=== PATIENT | female | born 1995 | race Caucasian/White ===

== ENCOUNTER 2018-05-17 14:50 | Emergency (ER) | payer BC ==
--- NOTE | 2018-05-17 17:10 | RAD REPORT ---
EXAM DESCRIPTION: RAD - Knee Left 3 View - 05/17/2018 4:58 pm CLINICAL HISTORY: Knee pain following trauma COMPARISON: None. FINDINGS: No fracture, dislocation or periosteal reaction.No joint effusion seen. No joint space arias rowing. No soft tissue abnormality. IMPRESSION: Negative left knee. Clinical concerns for internal derangement or occult bony injury could be further assessed with MR im aging.
--- NOTE | 2018-05-17 17:37 | ER ---
Nurse's Notes [facility] Name: Jennifer Cummings Age: 22 yrs Sex: Female : 1995 Arrival Date: 05/17/2018 Time: 14:53 Bed 23 Private MD: None, None Diagnosis: Abrasion of knee;Internal derangement of knee Presentation: 05/17 15:20 Presenting complaint: Patient states: I hurt my left knee, ambulatory last night, pt la1 reports partial weight bearing today, CMS intact. Transition of care: patient was not received from another setting of care. Onset of symptoms was May 17, 2018. Risk Assessment: Do you want to hurt yourself or someone else? Patient reports no desire to harm self or others. Initial Sepsis Screen: Does the patient meet any 2 criteria? No. Patient's initial sepsis screen is negative. Does the patient have a suspected source of infection? No. Patient's initial sepsis screen is negative. Care prior to arrival: None. 15:20 Method Of Arrival: Wheelchair la1 15:20 Acuity: TERI 4 la1 PSYCHOLOGICAL OPERATIONS: 15:21 LMP N/A - Irregular menses la1 Historical: - Allergies: 15:21 Latex, Natural Rubber; la1 - PMHx: 15:21 ADD/ADHD; Asthma; la1 - PSHx: 15:21 None; la1 - Immunization history:: Adult Immunizations up to date. - Social history:: Smoking status: Patient/guardian denies using tobacco. - Ebola Screening: : No symptoms or risks identified at this time. Screenin:56 Abuse screen: Denies threats or abuse. Nutritional screening: No deficits noted. tl3 Tuberculosis screening: No symptoms or risk factors identified. Fall Risk None identified. Assessment: 16:56 General: Appears uncomfortable, well groomed, well developed, well nourished, Behavior tl3 is calm, cooperative, appropriate for age. Pain: Complains of pain in left knee. Neuro: Level of Consciousness is awake, alert, obeys commands, Oriented to person, place, time, situation, Appropriate for age. Cardiovascular: Patient's skin is warm and dry. Respiratory: Airway is patent Respiratory effort is even, unlabored, Respiratory pattern is regular, symmetrical. GI: No signs and/or symptoms were reported involving the gastrointestinal system. : No signs and/or symptoms were reported regarding the genitourinary system. EENT: No signs and/or symptoms were reported regarding the EENT system. Derm: No signs and/or symptoms reported regarding the dermatologic system. Musculoskeletal: Reports pain in left knee since this morning at 1am, skin on knee abraded. Pain is 2 out of 10 on a pain scale. 18:12 Reassessment: No changes from previously documented assessment. Patient and/or family tl3 updated on plan of care and expected duration. Pain level reassessed. Patient is alert, oriented x 3, equal unlabored respirations, skin warm/dry/pink. Donnell at bedside discussing POC. 19:41 Reassessment: No changes from previously documented assessment. Patient and/or family tl3 updated on plan of care and expected duration. Pain level reassessed. Patient is alert, oriented x 3, equal unlabored respirations, skin warm/dry/pink. Donnell at bedside discussing POC. 19:58 Reassessment: Patient and/or family updated on plan of care and expected duration. Pain tl3 level reassessed. pt is very anxious, crying in pain. 20:10 Reassessment: Donnell at bedside discussing POC. tl3 20:52 Reassessment: No changes from previously documented assessment. Patient and/or family tl3 updated on plan of care and expected duration. Pain level reassessed. Patient is alert, oriented x 3, equal unlabored respirations, skin warm/dry/pink. Vital Signs: 15:22 BP 121 / 76; Pulse 98; Resp 18; Temp 97.2; Pulse Ox 98% on R/A; Weight 99.79 kg; Height la1 5 ft. 2 in. (157.48 cm); 18:12 BP 122 / 74; Pulse 91; Resp 18; Pulse Ox 99% on R/A; tl3 19:58 BP 140 / 94; Pulse 103; Resp 24; Pulse Ox 100% on R/A; tl3 20:52 BP 125 / 77; Pulse 101; Resp 18; Pulse Ox 98% on R/A; tl3 15:22 Body Mass Index 40.24 (99.79 kg, 157.48 cm) la1 ED Course: 14:53 Patient arrived in ED. mr 14:53 None, None is Private Physician. mr 15:20 Triage completed. la1 15:22 Arm band placed on right wrist. la1 16:25 Donnell Francisco PA is PHCP. jm 16:25 Sohail Nugent MD is Attending Physician. jm 16:53 Dhara Dinh, JASON is Primary Nurse. tl3 16:55 X-ray completed. Portable x-ray completed in exam room. Patient tolerated procedure la2 well. 16:56 Knee Left 3 View XRAY In Process Unspecified. EDMS 16:56 Patient has correct armband on for positive identification. Bed in low position. Adult tl3 w/ patient. 16:56 No provider procedures requiring assistance completed. Patient did not have IV access tl3 during this emergency room visit. 17:34 Harvinder Leonard MD is Referral Physician. [facility] 18:12 Crutch training done. Knee immobilizer applied on left knee. tl3 19:07 CT completed. Patient moved to CT via stretcher. Patient moved back from CT. cw1 19:08 Knee Left Wo Con In Process Unspecified. EDMS 19:48 Urine --Ancillary (enter results) Sent. tl3 19:48 Urine Dipstick--Ancillary (enter results) Sent. tl3 20:42 Harvinder Leonard MD is Referral Physician. jmm Administered Medications: 17:55 Drug: morphine 4 mg Route: IM; Site: right vastus lateralis; tl3 19:42 Follow up: Response: Pain is decreased tl3 17:55 Drug: Zofran 4 mg Route: PO; tl3 19:42 Follow up: Response: No adverse reaction tl3 20:32 Drug: Dilaudid 0.5 mg Route: IM; Site: right deltoid; tl3 20:53 Follow up: Response: Medication administered at discharge. tl3 20:32 Drug: Ketorolac 30 mg Route: IM; Site: right deltoid; tl3 20:53 Follow up: Response: Medication administered at discharge. tl3 Outcome: 17:36 Discharge ordered by . jmm 20:43 Discharge ordered by . jmm 20:52 Discharged to home with crutches. tl3 20:52 Condition: stable 20:52 Discharge instructions given to patient, family, Instructed on discharge instructions, follow up and referral plans. medication usage, Demonstrated understanding of instructions, follow-up care, medications, Prescriptions given X 1. 21:20 Patient left the ED. tl3 Signatures: Dispatcher [employer] EDMS Donnell Francisco PA PA jmm Rivera, Maria mr Olmos, Marlene cw1 Jorge Estrada RN RN la1 Lea Beasley2 Dhara Dinh, JASON RN tl3
--- NOTE | 2018-05-17 17:37 | EDPHYS ---
Physician Documentation [facility] Name: Jennifer Cummings Age: 22 yrs Sex: Female : 1995 Arrival Date: 05/17/2018 Time: 14:53 Bed 23 Private MD: None, None ED Physician Sohail Nugent HPI: 05/17 16:56 This 22 yrs old Female presents to ER via Wheelchair with complaints of Fall jmm Injury, Knee Pain. 16:56 Details of fall: The patient fell from an upright position. Onset: The symptoms/episode jmm began/occurred acutely, at 0100. Associated injuries: The patient sustained left knee. The patient has not experienced similar symptoms in the past. This is a 22 year old female that presents to the ED with left knee pain. Patient states at approx 0100 this morning she slipped on cement falling directly on the knee. Patient states when she awoke today she developed worsening pain. Denies other known injury. . 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 - Social history:: Smoking status: Patient/guardian denies using tobacco. - Ebola Screening: : No symptoms or risks identified at this time. ROS: 16:56 Constitutional: Negative for fever, chills, and weight loss, Cardiovascular: Negative jmm for chest pain, palpitations, and edema, Respiratory: Negative for shortness of breath, cough, wheezing, and pleuritic chest pain. 16:56 MS/extremity: Positive for injury or acute deformity, abrasion, pain. 16:56 All other systems are negative. Exam: 16:56 Head/Face: atraumatic. Chest/axilla: Normal chest wall appearance and motion. jmm Cardiovascular: Regular rate and rhythm. No edema appreciated Respiratory: Normal respirations, no respiratory distress appreciated Abdomen/GI: Non distended, soft 16:56 Constitutional: The patient appears alert, awake, uncomfortable. 16:56 Musculoskeletal/extremity: abrasion noted to the left anterior knee, the region is tender to palpation, no lateral or posterior pain is elicited on palpation or rom, full dorsalis pulse appreciated, compartments are soft, NVI. 16:56 Skin: abrasion noted to the left anterior knee. 16:56 Neuro: Orientation: is normal, Mentation: is normal, Memory: is normal. 16:56 Psych: Behavior/mood is pleasant, cooperative, anxious. Vital Signs: 15:22 BP 121 / 76; Pulse 98; Resp 18; Temp 97.2; Pulse Ox 98% on R/A; Weight 99.79 kg; Height la1 5 ft. 2 in. (157.48 cm); 18:12 BP 122 / 74; Pulse 91; Resp 18; Pulse Ox 99% on R/A; tl3 19:58 BP 140 / 94; Pulse 103; Resp 24; Pulse Ox 100% on R/A; tl3 20:52 BP 125 / 77; Pulse 101; Resp 18; Pulse Ox 98% on R/A; tl3 15:22 Body Mass Index 40.24 (99.79 kg, 157.48 cm) la1 Procedures: 21:14 Splinting: Splint applied to left leg using knee immobilizer, applied by nurse. jmm Examined by me, post splint application: neurovascular intact, 2+ distal pulses palpable, brisk capillary refill noted, Patient tolerated well. MDM: 16:56 Patient medically screened. jmm 17:34 Data reviewed: vital signs, nurses notes. Counseling: I had a detailed discussion with jmute the patient and/or guardian regarding: the historical points, exam findings, and any diagnostic results supporting the discharge/admit diagnosis, radiology results, the need for outpatient follow up, to return to the emergency department if symptoms worsen or persist or if there are any questions or concerns that arise at home. 20:41 Response to treatment: the patient's symptoms have mildly improved after treatment. ED jmm course: Dr. Bah evaluated the patient at bedside. 05/17 19:16 Order name: Urine Dipstick--Ancillary (enter results) ms 05/17 19:16 Order name: Urine --Ancillary (enter results) ms 05/17 15:22 Order name: Knee Left 3 View XRAY; Complete Time: 17:12 la1 05/17 18:06 Order name: Knee Left Wo Con; Complete Time: 19:51 EDMS 05/17 19:16 Order name: Urine Dipstick-Ancillary; Complete Time: 19:51 [facility] 05/17 19:16 Order name: Urine --Ancillary; Complete Time: 19:51 [facility] 05/17 17:12 Order name: Knee Immobilizer; Complete Time: 17:25 [facility] 05/17 17:12 Order name: Crutches; Complete Time: 17:25 [facility] 05/17 18:16 Order name: Urine Test (obtain specimen); Complete Time: 18:58 la1 Administered Medications: 17:55 Drug: morphine 4 mg Route: IM; Site: right vastus lateralis; tl3 19:42 Follow up: Response: Pain is decreased tl3 17:55 Drug: Zofran 4 mg Route: PO; tl3 19:42 Follow up: Response: No adverse reaction tl3 20:32 Drug: Dilaudid 0.5 mg Route: IM; Site: right deltoid; tl3 20:53 Follow up: Response: Medication administered at discharge. tl3 20:32 Drug: Ketorolac 30 mg Route: IM; Site: right deltoid; tl3 20:53 Follow up: Response: Medication administered at discharge. tl3 Disposition: 05/17/18 20:43 Discharged to Home. Impression: Abrasion of knee, Internal derangement of knee. - Condition is Stable. - Discharge Instructions: Knee Pain. - Prescriptions for Ibuprofen 800 mg Oral Tablet - take 1 tablet by ORAL route every 8 hours As needed take with food; 30 tablet. - Medication Reconciliation Form, Thank You Letter, Antibiotic Education, Prescription Opioid Use, Work release form form. - Follow up: Harvinder Leonard MD; When: 2 - 3 days; Reason: Recheck today's complaints, Continuance of care, Re-evaluation by your physician. Signatures: Dispatcher [employer] [facility] Donnell Francisco PA PA jmm Attema, Lee, RN RN la1 Dhara Dinh, JASON RN tl3 Corrections: (The following items were deleted from the chart) 17:58 17:36 05/17/2018 17:36 Discharged to Home. Impression: Internal derangement of knee; sahra Abrasion, left knee. Condition is Stable. Forms are Medication Reconciliation Form, Thank You Letter, Antibiotic Education, Prescription Opioid Use. Follow up: Harvinder Leonard; When: As needed; Reason: Recheck today's complaints, Continuance of care, Re-evaluation by your physician. sahra 21:20 20:43 05/17/2018 20:43 Discharged to Home. Impression: Abrasion of knee; Internal tl3 derangement of knee. Condition is Stable. Prescriptions for Ibuprofen 800 mg Oral Tablet - take 1 tablet by ORAL route every 8 hours As needed take with food; 30 tablet. and Forms are Medication Reconciliation Form, Thank You Letter, Antibiotic Education, Prescription Opioid Use. Follow up: Harvinder Leonard; When: 2 - 3 days; Reason: Recheck today's complaints, Continuance of care, Re-evaluation by your physician. sahra
[2018-05-17] MEDS ORDERED: ONDANSETRON 4 MG (ODT) TAB ONE (18:02)
[2018-05-17] MEDS ORDERED: MORPHINE 4 MG/ML SYR ONE (18:02)
[2018-05-17 19:21] LABS: Urine Blood NEGATIVE (NEG); Urine Glucose NEGATIVE (NEG); Urine Protein NEGATIVE (NEG); Urine Specific Gravity 1.025 (1.005-1.030); Urine pH 5.5 (5.0-7.0)
--- NOTE | 2018-05-17 19:49 | RAD REPORT ---
EXAM DESCRIPTION: CT - Knee Left Wo Con - 05/17/2018 7:08 pm CLINICAL HISTORY: Fall, pain, possible tibial plateau fracture. Pain out of proportion to plain film findings. COMPARISON: Left knee same date TECHNIQUE: Axial 2 millimeter thick images of the knee were obtained. Sagittal and coronal reformatt ed images were generated and reviewed. FINDINGS: Tibial plateau is intact. No femur, tibia, fibula for patella fracture. No patella tilt or displacement. No measurable joint effusion is identified. There is contusion or edema change anterio r to the tibia. Patella tendon appears to be intact. Quadriceps tendon unremarkable by CT criteria. CT is not adequate for assessment of meniscus or ligament injury. No air or foreign body in the soft tissues. IMPRESSION: No tibial plateau fracture or other acute bone finding. Contusion or edema changes anterior to the tibia. CT is not adequate for meniscus or ligament assessment. Internal derangement concerns would need MR barbara goldstein.
[2018-05-17] MEDS ORDERED: KETOROLAC 30 MG/ML INJ ONE (20:33)
[2018-05-17] MEDS ORDERED: HYDROMORPHONE HCL 1 MG/ML INJ ONE (20:33)
[2018-05-18] MEDS ORDERED: DIPHENHYDRAMINE 50 MG/ML VIAL ONE (23:01)
[2018-05-18] MEDS ORDERED: DEXAMETHASONE 10 MG/ML VIAL ONE (23:01)
[2018-05-18] MEDS ORDERED: FAMOTIDINE 20 MG/2 ML VIAL IV ONE (23:01)
[2018-05-18] MEDS ORDERED: NA CHLORIDE 0.9% 1,000 ML ONE (23:02)
[2018-05-18] MEDS ORDERED: EPINEPHRINE/PF 1 MG/ML AMP ONE (23:04)
== END 2018-05-17 21:20 | disposition home or self-care (01) ==
LOC: ER 14:50
DX: M23.92 Unspecified internal derangement of left knee (principal); S80.212A Abrasion, left knee, initial encounter; W01.0XXA Fall on same level from slipping, tripping and stumbling without subsequent striking against object, initial encounter; Y93.89 Activity, other specified; Y92.9 Unspecified place or not applicable
CPT/HCPCS: 73700; 81003; 81025; 96372; 99284; J0171; J1100; J1170; J7030

== ENCOUNTER 2018-06-13 22:10 | Inpatient (IN) | payer BC ==
[2018-06-13] MEDS ORDERED: LORazepam 2 MG/ML VIAL ONE (23:20)
[2018-06-13 23:45] LABS: Protime INR 1.18
[2018-06-13 23:46] LABS: Absolute Lymphocytes (CBC) 1.5 K/uL (0.7-4.9); Absolute Monocytes 0.6 K/uL (0.1-1.3); Absolute Neutrophil 9.7 K/uL (1.8-8.0); Basophils % 0.7 % (0-1.3); Eosinophils % 0.4 % (0-4.4); Hematocrit 41.9 % (36.0-45.0); Lymphocytes % 12.2 % (15.3-44.8); MCH 28.5 pg (27.0-35.0); MCV 81.5 fL (80-100); MPV 7.9 fL (7.6-11.3); Monocytes % 5.4 % (3.3-12.3); RBC Red Blood Cell Count 5.15 M/uL (3.86-4.86)
[2018-06-14] MEDS ORDERED: LORazepam 2 MG/ML VIAL ONE ×3 (00:01→01:17)
[2018-06-14 00:36] LABS: ALT/SGPT 22 U/L (12-78); AST/SGOT 19 U/L (15-37); Albumin 4.3 g/dL (3.4-5.0); Alkaline Phosphatase 101 U/L (45-117); BUN Blood Urea Nitrogen 10 mg/dL (7-18); Bicarbonate 22 mmol/L (21-32); Bilirubin Direct 0.1 mg/dL (0-0.2); Bilirubin Total 0.7 mg/dL (0.2-1.0); Glucose Level 102 mg/dL (74-106); Potassium 3.1 mmol/L (3.5-5.1); Protein, Total 8.6 g/dL (6.4-8.2); Sodium Level 137 mmol/L (136-145)
[2018-06-14] MEDS ORDERED: NA CHLORIDE 0.9% 1,000 ML ONE (01:17)
--- NOTE | 2018-06-14 01:53 | EDPHYS ---
Physician Documentation [facility] Name: Jennifer Cummings Age: 23 yrs Sex: Female : 1995 Arrival Date: 06/13/2018 Time: 22:25 Bed 6 Private MD: ED Physician Khurram Bah HPI: 06/14 02:27 This 23 yrs old Female presents to ER via EMS with complaints of Suspected gs Ingestion, Suicidal Ideation. 02:27 The patient presents to the emergency department with suicide ideation, and the patient gs has a plan, to overdose with medications. Onset: The symptoms/episode began/occurred acutely. Associated signs and symptoms: Pertinent negatives: abdominal pain. Severity of symptoms: At their worst the symptoms were severe in the emergency department the symptoms are unchanged. It is unknown whether or not the patient has had similar symptoms in the past. 02:27 overdose Adderall had 60 pills on 06/08 only 2 left. 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 - Social history:: Smoking status: Patient/guardian denies using tobacco, Patient uses alcohol, occasionally. Patient/guardian denies using street drugs. - Ebola Screening: : Patient negative for fever greater than or equal to 101.5 degrees Fahrenheit, and additional compatible Ebola Virus Disease symptoms Patient denies exposure to infectious person Patient denies travel to an Ebola-affected area in the 21 days before illness onset. ROS: 06/14 02:27 All other systems are negative. gs Exam: 02:27 Head/Face: Normocephalic, atraumatic. Eyes: Pupils equal round and reactive to light, gs extra-ocular motions intact. Lids and lashes normal. Conjunctiva and sclera are non-icteric and not injected. Cornea within normal limits. Periorbital areas with no swelling, redness, or edema. ENT: Nares patent. No nasal discharge, no septal abnormalities noted. Tympanic membranes are normal and external auditory canals are clear. Oropharynx with no redness, swelling, or masses, exudates, or evidence of obstruction, uvula midline. Mucous membranes moist. Neck: Trachea midline, no thyromegaly or masses palpated, and no cervical lymphadenopathy. Supple, full range of motion without nuchal rigidity, or vertebral point tenderness. No Meningismus. Chest/axilla: Normal chest wall appearance and motion. Nontender with no deformity. No lesions are appreciated. Respiratory: Lungs have equal breath sounds bilaterally, clear to auscultation and percussion. No rales, rhonchi or wheezes noted. No increased work of breathing, no retractions or nasal flaring. Abdomen/GI: Soft, non-tender, with normal bowel sounds. No distension or tympany. No guarding or rebound. No evidence of tenderness throughout. Back: No spinal tenderness. No costovertebral tenderness. Full range of motion. Skin: Warm, dry with normal turgor. Normal color with no rashes, no lesions, and no evidence of cellulitis. MS/ Extremity: Pulses equal, no cyanosis. Neurovascular intact. Full, normal range of motion. Neuro: Awake and alert, GCS 15, oriented to person, place, time, and situation. Cranial nerves II-XII grossly intact. Motor strength 5/5 in all extremities. Sensory grossly intact. Cerebellar exam normal. Normal gait. 02:27 Constitutional: The patient appears alert, awake. 02:27 Cardiovascular: Rate: tachycardic, Rhythm: regular, Pulses: no pulse deficits are appreciated. 02:27 Psych: Behavior/mood is uncooperative, Affect is flat, Oriented to person, place, time, Judgement / Insight is impaired. Delusions/hallucinations are not present. 02:37 ECG was reviewed by the Attending Physician. 03:53 Skin: injury, laceration(s), superficial forearm leacerations. Vital Signs: 06/13 22:15 BP 150 / 84; Pulse 145; Resp 18; Temp 98.7(O); Pulse Ox 100% on R/A; Weight 97.52 kg fc (R); Height 5 ft. 2 in. (157.48 cm) (R); Pain 0/10; 23:00 BP 131 / 87; Pulse 141; Resp 20; Pulse Ox 100% on R/A; Pain 0/10; aa1 06/14 00:00 BP 141 / 83; Pulse 131; Resp 18; Pulse Ox 100% on R/A; Pain 0/10; aa1 00:30 BP 144 / 70; Pulse 137; Resp 18; Pulse Ox 100% on R/A; Pain 0/10; aa1 01:14 BP 131 / 70; lb3 01:14 BP 131 / 70; Pulse 125; Resp 18; Temp 98.4; Pulse Ox 100% ; lb3 02:15 BP 135 / 72; Pulse 114; Resp 20; Pulse Ox 100% on R/A; Pain 0/10; aa1 03:34 BP 143 / 99; Pulse 113; Resp 18; Temp 97.6; Pulse Ox 100% ; lb3 03:58 BP 143 / 99; Pulse 105; Resp 20 S; Pulse Ox 99% on R/A; Pain 0/10; jd3 06/13 22:15 Body Mass Index 39.32 (97.52 kg, 157.48 cm) fc MDM: 06/13 22:49 Patient medically screened. 06/14 02:27 Differential diagnosis: drug withdrawal. acute psychotic break, depression, amphetamine gs OD. Data reviewed: vital signs, nurses notes. Counseling: I had a detailed discussion with the patient and/or guardian regarding: the historical points, exam findings, and any diagnostic results supporting the discharge/admit diagnosis, the need for further work-up and treatment in the hospital. Response to treatment: the patient's symptoms have mildly improved after treatment, and as a result, I will admit patient. 06/13 22:27 Order name: Acetaminophen; Complete Time: :06/13 22:27 Order name: Basic Metabolic Panel; Complete Time: :06/13 22:27 Order name: CBC with Diff; Complete Time: 00:34 06/13 22:27 Order name: ETOH Level; Complete Time: 00:34 06/13 22:27 Order name: Hepatic Function; Complete Time: :06/13:27 Order name: PT-INR; Complete Time: 00:34 06/13 22:27 Order name: Ptt, Activated; Complete Time: 00:34 06/13 22:27 Order name: Salicylate; Complete Time: 00:34 06/13 22:27 Order name: Urine Drug Screen aa 06/14 02:14 Order name: Add On-Lab aa1 06/14 02:23 Order name: Test Serum, [facility] 06/14 02:26 Order name: Urine Dipstick--Ancillary (enter results) ms 06/13 22:27 Order name: Urine Test (obtain specimen); Complete Time: 02:24 aa 06/13 22:27 Order name: EKG; Complete Time: 22:28 [facility] 06/13 22:27 Order name: EKG - Nurse/Tech; Complete Time: 22:27 aa 06/13 22:27 Order name: IV Saline Lock; Complete Time: 22:27 [facility] 06/13 22:27 Order name: Labs collected and sent; Complete Time: 22:27 [facility] 06/13 22:27 Order name: Urine Dipstick-Ancillary (obtain specimen); Complete Time: 02:24 aa 06/14 01:56 Order name: CONS Pharmacy Consult [facility] 06/14 01:56 Order name: Regular EDNY EC:37 Rate is 153 beats/min. Rhythm is regular. FL interval is normal. QRS interval is gs normal. T waves are Normal. No ST changes noted. Clinical impression: Abnormal EKG without significant change and Sinus tachycardia. Interpreted by me. Administered Medications: 06/13 23:10 Drug: NS 0.9% 1000 ml Route: IV; Rate: 1 bolus; Site: right antecubital; aa1 06/14 02:14 Follow up: IV Status: Completed infusion [facility] 06/13 23:10 Drug: Ativan 1 mg Route: IVP; Site: right antecubital; aa1 23:30 Follow up: Response: No adverse reaction; No change in condition aa1 06/14 00:03 Drug: Ativan 2 mg Route: IVP; Site: right antecubital; aa1 00:33 Follow up: Response: No adverse reaction; No change in condition aa1 00:46 Drug: Ativan 2 mg Route: IVP; Site: right antecubital; aa1 01:05 Follow up: Response: No adverse reaction; No change in condition aa1 01:15 Drug: Ativan 2 mg Route: IVP; Site: right antecubital; jd3 02:15 Follow up: Response: No adverse reaction jd3 02:14 Drug: NS 0.9% 1000 ml Route: IV; Rate: 125 ml/hr; Site: right antecubital; aa1 02:19 Follow up: IV Status: Infusion continued upon admission aa1 Disposition: 06/14/18 01:52 Hospitalization ordered by Sohail Thibodeaux for Observation. Preliminary diagnosis is Poisoning by amphetamines, intentional self-harm. - Bed requested for Intensive Care Unit. - Status is Observation. jd3 - Condition is Stable. - Problem is new. - Symptoms have improved. UTI on Admission? No Critical care time excluding procedures: 02:27 Critical care time: Bedside Care: 10 minutes, Consultation: 10 minutes, Family gs Intervention: 10 minutes. Total time: 30 minutes Signatures: Dispatcher [employer] EDMirta Ley RN RN aa1 Miladys Fernandez RN Vanessa Mendoza ms, Gregory, MD MD gs Davies, Jonathon, RN RN jd3 Corrections: (The following items were deleted from the chart) 03:35 01:52 Hospitalization Ordered by Sohail Thibodeaux MD for Observation. Preliminary ms diagnosis is Poisoning by amphetamines, intentional self-harm. Bed requested for Intensive Care Unit. Status is Observation. Condition is Stable. Problem is new. Symptoms have improved. UTI on Admission? No. gs 04:20 03:35 06/14/2018 01:52 Hospitalization Ordered by Sohail Thibodeaux MD for Observation. jd3 Preliminary diagnosis is Poisoning by amphetamines, intentional self-harm. Bed requested for Intensive Care Unit. Status is Observation. Condition is Stable. Problem is new. Symptoms have improved. UTI on Admission? No. ms
[2018-06-14] MEDS ORDERED: ONDANSETRON 4 MG/2 ML VIAL IV PRN (01:54)
[2018-06-14] MEDS ORDERED: ACETAMINOPHEN 500 MG TAB PO PRN (01:54)
[2018-06-14] MEDS: NA CHLORIDE 0.9% 1,000 ML IV SCH ×3 (02:00→21:11)
[2018-06-14 02:47] LABS: Barbiturates NEGATIVE (NEGATIVE); Benzodiazepines NEGATIVE (NEGATIVE); Cocaine NEGATIVE (NEGATIVE); METHAMPHETAM POSITIVE (NEGATIVE); Methadone NEGATIVE (NEGATIVE); Opiates NEGATIVE (NEGATIVE); Phencyclidine NEGATIVE (NEGATIVE); THC Cannibis NEGATIVE (NEGATIVE)
--- NOTE | 2018-06-14 04:21 | ER ---
Nurse's Notes [facility] Name: Jennifer Cummings Age: 23 yrs Sex: Female : 1995 Arrival Date: 06/13/2018 Time: 22:25 Bed 6 Private MD: Diagnosis: Poisoning by amphetamines, intentional self-harm Presentation: 06/13 22:15 Method Of Arrival: EMS: [facility] 22:15 Presenting complaint: EMS states: that they were called for pt who overdosed on Adderall 30 mg, she took 15 tabs. . Pt is denying taking any medication. Does have superficial cutes to both arms. Transition of care: patient was not received from another setting of care. Onset of symptoms was June 13, 2018 at 21:45. Risk Assessment: Do you want to hurt yourself or someone else? Patient reports desire/thoughts of hurting themselves or someone else. Provider notified. Initial Sepsis Screen: Does the patient meet any 2 criteria? HR > 90 bpm. Yes Does the patient have a suspected source of infection? No. Patient's initial sepsis screen is negative. Care prior to arrival: IV initiated. 22 GA, in the right forearm, Glucose check: 109. 22:15 Acuity: TERI 2 fc WEDGER: 22:15 LMP N/A - control method Historical: - Allergies: 23:24 Latex, Natural Rubber; aa1 - Home Meds: 23:24 Adderall XR Oral [Active]; aa1 - PMHx: 23:24 ADD/ADHD; Asthma; aa1 - PSHx: 23:24 None; aa1 - Immunization history:: Last tetanus immunization: unknown, Flu vaccine is not up to date. - Social history:: Smoking status: Patient/guardian denies using tobacco, Patient uses alcohol, occasionally. Patient/guardian denies using street drugs. - Ebola Screening: : Patient negative for fever greater than or equal to 101.5 degrees Fahrenheit, and additional compatible Ebola Virus Disease symptoms Patient denies exposure to infectious person Patient denies travel to an Ebola-affected area in the 21 days before illness onset. Screenin:33 Abuse screen: Denies threats or abuse. Nutritional screening: No deficits noted. Tuberculosis screening: No symptoms or risk factors identified. Fall Risk None identified. Assessment: 22:30 General: Appears in no apparent distress. comfortable, Behavior is calm, cooperative, aa1 appropriate for age. Pain: Denies pain. Neuro: Level of Consciousness is awake, alert, obeys commands, Oriented to person, place, time, situation, Moves all extremities. Full function Speech is normal, Pupils are dilated. Cardiovascular: Denies chest pain, palpitations, Heart tones S1 S2 present Capillary refill < 3 seconds Patient's skin is warm and dry. Rhythm is sinus tachycardia. Respiratory: Airway is patent Respiratory effort is even, unlabored, Respiratory pattern is regular, symmetrical. GI: No signs and/or symptoms were reported involving the gastrointestinal system. : No signs and/or symptoms were reported regarding the genitourinary system. EENT: No signs and/or symptoms were reported regarding the EENT system. Derm: Skin is intact, is healthy with good turgor, Skin is pink, warm \T\ dry. Musculoskeletal: Circulation, motion, and sensation intact. Capillary refill < 3 seconds. 22:30 Injury Description: Laceration sustained to right arm and left arm is superficial, not aa1 bleeding. 23:23 Reassessment: Patient appears in no apparent distress at this time. Patient and/or aa1 family updated on plan of care and expected duration. Pain level reassessed. Patient is alert, oriented x 3, equal unlabored respirations, skin warm/dry/pink. Awaiting lab results. Mother at bedside. 06/14 00:07 Reassessment: Patient appears in no apparent distress at this time. Patient and/or aa1 family updated on plan of care and expected duration. Pain level reassessed. Patient is alert, oriented x 3, equal unlabored respirations, skin warm/dry/pink. Awaiting lab results. 00:22 Reassessment: Konstantin with [place] [facility] notified. Monitor for at least 6 hrs. Supportive care only. 01:18 Reassessment: Patient appears in no apparent distress at this time. Patient and/or aa1 family updated on plan of care and expected duration. Pain level reassessed. Patient is alert, oriented x 3, equal unlabored respirations, skin warm/dry/pink. Mother remains at bedside. Awaiting provider reassessment. HR remains elevated. 01:58 Reassessment: Patient appears in no apparent distress at this time. Patient and/or aa1 family updated on plan of care and expected duration. Pain level reassessed. Patient is alert, oriented x 3, equal unlabored respirations, skin warm/dry/pink. Pt to be admitted to ICU; awaiting bed assignment. 02:45 Reassessment: No changes from previously documented assessment. Patient and/or family jd3 updated on plan of care and expected duration. Pain level reassessed. Patient is alert, oriented x 3, equal unlabored respirations, skin warm/dry/pink. 03:45 Reassessment: No changes from previously documented assessment. Patient and/or family jd3 updated on plan of care and expected duration. Pain level reassessed. Patient is alert, oriented x 3, equal unlabored respirations, skin warm/dry/pink. 04:12 Reassessment: All belongings and the two tablets of Adderall left in the bottle given fc to pts mother. 04:19 Reassessment: No changes from previously documented assessment. Patient and/or family jd3 updated on plan of care and expected duration. Pain level reassessed. Patient is alert, oriented x 3, equal unlabored respirations, skin warm/dry/pink. Psych: 06/13 22:34 Subjective: Patient's mood is sad, hopeless, Delusions are denied, Hallucinations are fc denied Having thoughts of suicide. Denies suicidal plan. Objective: Patient is cooperative, Speech is normal, Affect is flat, Patient has mutilated themselves by bilateral forearm superficial cuts. Interventions: Removed personal items and placed in bag. Patient placed in hospital gown. Searched person for dangerous items. Belonging list filled out. Suicide Risk Assessment: Sad Person Scale: Sex of patient: Female: Score 0 points. Age of patient: Score 1 point if patient 15-34. Depression: Score 1 point if signs of depression are present. Previous Attempt: Score 0 point if patient has not previously attempted suicide. Substance Abuse: Score 0 point if patient does not abuse alcohol or drugs. Rational Thinking: Score 0 point if patient has rational thinking. Social Support: Score 0 if social support is present/available. Organized Plan: Score 0 if patient did not have an organized plan in place. Relationship: Score 1 point if patient is , , , or for a single male Chronic Sickness: Score 0 point if patient does not have a chronic illness, debilitating, or severe disorder. TOTAL POINTS: If total points are 3-4, proposed clinical action is close follow-up/consider hospitalization. Safety Checks: Personal items have been removed. Door is open. Visitors are present. Pt denies substance abuse. 06/14 04:20 Commitment: pt admitted to ICU for closer monitoring. jd3 Vital Signs: 06/13 22:15 BP 150 / 84; Pulse 145; Resp 18; Temp 98.7(O); Pulse Ox 100% on R/A; Weight 97.52 kg fc (R); Height 5 ft. 2 in. (157.48 cm) (R); Pain 0/10; 23:00 BP 131 / 87; Pulse 141; Resp 20; Pulse Ox 100% on R/A; Pain 0/10; aa1 06/14 00:00 BP 141 / 83; Pulse 131; Resp 18; Pulse Ox 100% on R/A; Pain 0/10; aa1 00:30 BP 144 / 70; Pulse 137; Resp 18; Pulse Ox 100% on R/A; Pain 0/10; aa1 01:14 BP 131 / 70; lb3 01:14 BP 131 / 70; Pulse 125; Resp 18; Temp 98.4; Pulse Ox 100% ; lb3 02:15 BP 135 / 72; Pulse 114; Resp 20; Pulse Ox 100% on R/A; Pain 0/10; aa1 03:34 BP 143 / 99; Pulse 113; Resp 18; Temp 97.6; Pulse Ox 100% ; lb3 03:58 BP 143 / 99; Pulse 105; Resp 20 S; Pulse Ox 99% on R/A; Pain 0/10; jd3 06/13 22:15 Body Mass Index 39.32 (97.52 kg, 157.48 cm) fc ED Course: 06/13 22:15 Arm band placed on Patient placed in an exam room, on a stretcher. fc 22:15 Patient has correct armband on for positive identification. Placed in gown. Bed in low fc position. Call light in reach. Side rails up X2. quality assurance monitor chassis on. Pulse ox on. NIBP on. 22:25 Patient arrived in ED. aa1 22:29 EKG done, by ED staff. cc 22:31 Triage completed. fc 22:36 Khurram Bah MD is Attending Physician. gs 22:40 Initial lab(s) drawn, by me, sent to lab. Maintain EMS IV. Dressing intact. Good blood aa1 return noted. Site clean \T\ dry. Gauge \T\ site: 22g R AC. 23:06 Mirta Hernandez RN is Primary Nurse. aa1 23:23 Safety checks: Items removed: yes. Door open/sign placed on door: yes. Family/friend lb3 present: yes. Sitter present: Yes. 23:40 Safety checks: Items removed: yes. Door open/sign placed on door: yes. Family/friend lb3 present: yes. Sitter present: Yes. 23:55 Safety checks: Items removed: yes. Door open/sign placed on door: yes. Family/friend lb3 present: yes. Sitter present: Yes. 06/14 00:10 Safety checks: Items removed: yes. Door open/sign placed on door: yes. Family/friend lb3 present: yes. Sitter present: Yes. 00:25 Safety checks: Items removed: yes. Door open/sign placed on door: yes. Family/friend lb3 present: yes. Sitter present: Yes. 00:40 Safety checks: Items removed: yes. Door open/sign placed on door: yes. Family/friend lb3 present: yes. Sitter present: Yes. 00:55 Safety checks: Items removed: yes. Door open/sign placed on door: yes. Family/friend lb3 present: yes. Sitter present: Yes. 01:10 Safety checks: Items removed: yes. Door open/sign placed on door: yes. Family/friend lb3 present: yes. Sitter present: Yes. 01:25 Safety checks: Items removed: yes. Door open/sign placed on door: yes. Family/friend lb3 present: yes. Sitter present: Yes. 01:40 Safety checks: Items removed: yes. Door open/sign placed on door: yes. Family/friend lb3 present: yes. Sitter present: Yes. 01:51 Sohail Thibodeaux MD is Hospitalizing Provider. 02:00 Urine collected: clean catch specimen, clear. aa1 02:04 Safety checks: Items removed: yes. Door open/sign placed on door: yes. Family/friend lb3 present: yes. Sitter present: Yes. Other: walked patient to bathroom , mom with patient to obtain UA specimen. 02:20 Safety checks: Items removed: yes. Door open/sign placed on door: yes. Family/friend lb3 present: yes. Sitter present: Yes. 02:50 Safety checks: Items removed: yes. Door open/sign placed on door: yes. no. lb3 Family/friend present: yes. Sitter present: Yes. 03:05 Safety checks: Items removed: yes. Door open/sign placed on door: yes. Family/friend lb3 present: yes. Sitter present: Yes. 03:20 Safety checks: Items removed: yes. Door open/sign placed on door: yes. Family/friend lb3 present: yes. Sitter present: Yes. 03:35 Safety checks: Items removed: yes. Door open/sign placed on door: yes. Family/friend lb3 present: yes. Sitter present: Yes. 03:50 Safety checks: Items removed: yes. Door open/sign placed on door: yes. Family/friend lb3 present: yes. Sitter present: Yes. 03:56 No provider procedures requiring assistance completed. Patient admitted, IV remains in fc place. Administered Medications: 06/13 23:10 Drug: NS 0.9% 1000 ml Route: IV; Rate: 1 bolus; Site: right antecubital; aa1 06/14 02:14 Follow up: IV Status: Completed infusion aa1 06/13 23:10 Drug: Ativan 1 mg Route: IVP; Site: right antecubital; aa1 23:30 Follow up: Response: No adverse reaction; No change in condition aa1 06/14 00:03 Drug: Ativan 2 mg Route: IVP; Site: right antecubital; aa1 00:33 Follow up: Response: No adverse reaction; No change in condition aa1 00:46 Drug: Ativan 2 mg Route: IVP; Site: right antecubital; aa1 01:05 Follow up: Response: No adverse reaction; No change in condition aa1 01:15 Drug: Ativan 2 mg Route: IVP; Site: right antecubital; jd3 02:15 Follow up: Response: No adverse reaction jd3 02:14 Drug: NS 0.9% 1000 ml Route: IV; Rate: 125 ml/hr; Site: right antecubital; aa1 02:19 Follow up: IV Status: Infusion continued upon admission aa1 Outcome: 01:52 Decision to Hospitalize by Provider. 03:55 Admitted to ICU accompanied by nurse, family with patient, via stretcher, room icu 3, fc on monitor, with chart, Report called to Vera GOMEZ 03:55 Condition: good 03:55 Discharge instructions given to patient, family, Instructed on the need for admit, Demonstrated understanding of instructions. 04:20 Patient left the ED. [email or web address] Signatures: Mirta Hernandez RN RN aa1 Miladys Fernandez RN RN Ramandeep Montana Gregory, MD MD gs Davies, Jonathon, RN RN jd3 Tete Wright lb3 Corrections: (The following items were deleted from the chart) 00:22 06/13 22:15 Presenting complaint: EMS states: that they were called for pt who fc overdosed on Adderall. Pt is denying taking any medication. Does have superficial cutes to both arms. fc
[2018-06-14 04:50] VITALS: BMI 39.3
[2018-06-14 05:14] LABS: Urine Blood NEGATIVE (NEG); Urine Glucose NEGATIVE (NEG); Urine Protein NEGATIVE (NEG); Urine Specific Gravity <1.005 (1.005-1.030); Urine pH 5.5 (5.0-7.0)
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
[2018-06-14 08:27] VITALS: O2SAT 100
[2018-06-14] MEDS ORDERED: POTASSIUM 25 MEQ EFFERV TAB PO ONE (14:41)
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
--- NOTE | 2018-06-15 10:11 | EKG ---
Test Date: 2018-06-13 Test Time: 22:23:40 Inventory Representative: RITA MEASUREMENT RESULTS: Intervals: Rate: 153 OK: 112 QRSD: 76 QT: 274 QTc: 437 [place]: P: 72 OK: 112 QRS: 58 T: 45 INTERPRETIVE STATEMENTS: Sinus tachycardia Nonspecific ST abnormality Abnormal ECG No previous ECG available for comparison Electronically Signed On 06-15-18 10:10:47 CDT by Cesar Palomino
[2018-06-16 14:02] VITALS: BP 135/92
[2018-06-16 14:07] VITALS: TEMP 98.4
== END 2018-06-14 23:21 | DRG 918 ==
LOC: ER 22:10 → ERHOLD 06-14 01:54 → OBSVTOIN 06-14 01:54 → 3RD-ICU 06-14 04:01
PROVIDERS: ADMIT Hospitalist; ATTEND Family Medicine
DX: T43.622A Poisoning by amphetamines, intentional self-harm, initial encounter (principal); Y92.89 Other specified places as the place of occurrence of the external cause; F32.9 Major depressive disorder, single episode, unspecified; Z91.14 Patient's other noncompliance with medication regimen; J45.909 Unspecified asthma, uncomplicated; F98.8 Other specified behavioral and emotional disorders with onset usually occurring in childhood and adolescence; S61.512A Laceration without foreign body of left wrist, initial encounter; S61.511A Laceration without foreign body of right wrist, initial encounter; X78.1XXA Intentional self-harm by knife, initial encounter
CPT/HCPCS: 36415; 80048; 80076; 80307; 80320; 80329; 81003; 82962; 84703; 85025; 85610; 85730; 93005; 96361; 96374; 99285; J2405; J7030